=== PATIENT | female | born 1945 | race Two or more races ===

== ENCOUNTER 2022-10-31 08:59 | Outpatient (CLI) | payer OTHER | END 2022-10-31 09:18 | disposition home or self-care (01) | LOC: RAD 08:59 | PROVIDERS: ATTEND Anesthesiology Pain Medicine | DX: I10 Essential (primary) hypertension (principal) ==

== ENCOUNTER 2022-11-01 06:37 | Day surgery (SDC) | payer OTHER | END 2022-11-01 12:05 | disposition home or self-care (01) | LOC: CIR.AMB 06:37 | PROVIDERS: ATTEND Anesthesiology Pain Medicine | DX: M48.061 Spinal stenosis, lumbar region without neurogenic claudication (principal); M99.43 Connective tissue stenosis of neural canal of lumbar region; Z91.013 Allergy to seafood; Z91.041 Radiographic dye allergy status; Z88.8 Allergy status to other drugs, medicaments and biological substances; I10 Essential (primary) hypertension ==